=== PATIENT | female | born 1950 | race Caucasian/White ===

== ENCOUNTER 2019-09-13 00:17 | Emergency (ER) | payer OTHER ==
[~2019-09-13] VITALS: Ht 160 cm; Wt 81.7 kg
[2019-09-13] MEDS ORDERED: SIMVASTATIN80 MG PO (00:25)
[2019-09-13] MEDS ORDERED: LISINOPRIL PO (00:25)
[2019-09-13] MEDS ORDERED: WATER PILL (00:26)
[2019-09-13 02:21] VITALS: BP 149/54
== END 2019-09-13 02:22 | disposition home or self-care (01) ==
LOC: ER 00:17
DX: T78.3XXA Angioneurotic edema, initial encounter (principal); I10 Essential (primary) hypertension; E78.00 Pure hypercholesterolemia, unspecified; Z87.891 Personal history of nicotine dependence